=== PATIENT | male | born 1985 | race Caucasian/White ===

== ENCOUNTER 2018-05-25 19:05 | Emergency (ER) | payer OTHER ==
[~2018-05-25] VITALS: Ht 182.9 cm; Wt 77.6 kg
--- NOTE | 2018-05-25 19:25 | NUR ---
Patient came bib [place]/[employer]. AAOX4. Patient speech is clear, speaks in complete sentences. No neuro deficits noted. Patient brought in for c/o generalized abdominal pain, and rsided head pain x 30 minutes ago s/p being arrested by [employer]. Respiratory even and unlabored, so cough or sob noted. No cardiovascular distress noted, all pulses palpable. No distress. Patient in bed at lowest position, side rails upx2, patient restrained on bed with handcuffs, [employer] officer at bedside. Fall precautions implemented per protocol.
[2018-05-25 19:55] LABS: BASOPHILS % (AUTO) 0.3 % (0.0-2.0); EOSINOPHILS # (AUTO) 0.3 K/uL (0.0-0.7); EOSINOPHILS % (AUTO) 3.5 % (0.0-7.0); HEMATOCRIT 43.2 % (36.7-47.1); HEMOGLOBIN 14.4 g/dL (12.5-16.3); LYMPHOCYTES # (AUTO) 0.8 K/uL (20.0-40.0); LYMPHOCYTES % (AUTO) 9.3 % (20.5-51.5); MEAN CORPUSCULAR HEMOGLOBIN 30.5 uug (23.8-33.4); MEAN CORPUSCULAR HGB CONC 33 g/dL (32.5-36.3); MEAN CORPUSCULAR VOLUME 91.1 fL (73.0-96.2); MONOCYTES # (AUTO) 0.5 K/uL (2.0-10.0); MONOCYTES % (AUTO) 5.1 % (0.0-11.0); NEUTROPHILS # (AUTO) 7.3 K/uL (1.8-8.9); NEUTROPHILS % (AUTO) 81.8 % (38.5-71.5); PLATELET COUNT (AUTO) 205 K/uL (152-348); RED BLOOD CELL COUNT(AUTO) 4.74 MIL/uL (4.06-5.63)
[2018-05-25 20:04] LABS: CREATININE 0.9 mg/dL (0.6-1.3); POTASSIUM 4.1 mmol/L (3.5-5.1)
[2018-05-25 20:10] LABS: BILIRUBIN,DIRECT 0.2 mg/dL (0.0-0.2); BILIRUBIN,TOTAL 0.6 mg/dL (0.2-1.0); TOTAL PROTEIN, SERUM 7.6 g/dL (6.4-8.2)
[2018-05-25 20:18] LABS: ETHANOL < 3 MG/DL (0-0)
--- NOTE | 2018-05-25 20:21 | NUR ---
Patient in bed, NAD, [employer] officers at bedside.
--- NOTE | 2018-05-25 21:13 | NUR ---
Patient discharged to home in stable conditon. Written and verbal after care instructions given. Patient verbalizes understanding of instructions. Patient wheeled out via w/c accompanied by two police officers.
[2018-05-25 21:15] VITALS: BP 160/75
== END 2018-05-25 21:00 ==
LOC: ER 19:05
DX: R10.84 Generalized abdominal pain (principal)
CPT/HCPCS: 36415; 80048; 80076; 83690; 85025; 99283; G0480; A4663